=== PATIENT | female | born 1935 | race Caucasian/White ===

== ENCOUNTER 2022-10-23 18:14 | Inpatient (IN) | payer MEDICARE, BC ==
[~2022-10-23] VITALS: Ht 165.1 cm; Wt 65.8 kg
--- NOTE | 2022-10-23 18:20 | NUR ---
BIB [facility] from home with c/o syncopal episode in the shower. Pt to room 1A via EMS gurney. Per EMS pt had another syncopal episode upon their arrival. Pt BP on scene was 46/20 per EMS. Pt was given NS 500ML bolus and Epi x 3 doses IV (per their symptomatic hypotension protocol) in route to ER by EMS .Pt arrives on 12 20 via 100% NRB mask, pt's room air pulse ox was 83% per EMS. Blood adobo=326.
[2022-10-23] MEDS ORDERED: IV NORMAL SALINE 500 ML BAG IV ONE (18:30)
[2022-10-23 18:38] LABS: HEMATOCRIT 33.4 % (31.2-41.9); MEAN CORPUSCULAR HEMOGLOBIN 29.2 uug (24.7-32.8); MEAN CORPUSCULAR VOLUME 89.7 fL (75.5-95.3); PLATELET COUNT (AUTO) 180 K/uL (179-408)
[2022-10-23 18:46] LABS: CREATININE 1.2 mg/dL (0.6-1.3); POTASSIUM 3.3 mmol/L (3.5-5.1)
[2022-10-23 18:58] LABS: BILIRUBIN,TOTAL 0.2 mg/dL (0.2-1.0); TOTAL PROTEIN, SERUM 5.2 g/dL (6.4-8.2)
[2022-10-23] MEDS ORDERED: SWABABLE VALVE TRANSFER SET EA MC ONE ×2 (18:58→21:42)
[2022-10-23] MEDS ORDERED: IV NORMAL SALINE 250 ML IV ONE ×2 (18:58→21:42)
[2022-10-23] MEDS ORDERED: IOHEXOL 300MG/ML 100 ML INFUS..BTL ONE (18:58)
[2022-10-23] MEDS ORDERED: NOREPINEPHRINE BITARTRATE 8 MG in IV NORMAL SALINE 242 ML IV PRN (19:00)
[2022-10-23] MEDS ORDERED: PIPERACILLIN SODIUM/TAZOBACTAM 3.375 G in IV DEXTROSE 5% 50 ML IV ONE (19:15)
[2022-10-23] MEDS ORDERED: METRONIDAZOLE 500 MG/NS 100 ML PIGGYBACK IV ONE (19:15)
[2022-10-23] MEDS ORDERED: VANCOMYCIN 1G/D5W 200 ML PIGGYBACK IV ONE (19:15)
--- NOTE | 2022-10-23 19:16 | NUR ---
patient unstable BP. RN to call Radiology when patient is stable.
[2022-10-23] MEDS ORDERED: METRONIDAZOLE 500 MG/NS 100ML 100 ML IV ONE (19:23)
[2022-10-23] MEDS ORDERED: PIPERACILLIN/TAZOBACTAM/D5W 50 ML IV ONE (19:23)
[2022-10-23] MEDS ORDERED: VANCOMYCIN IV 0 ML ONE (19:23)
--- NOTE | 2022-10-23 19:55 | NUR ---
at bedside. Gave all due meds as ordered.
[2022-10-23] MEDS: POTASSIUM CHLORIDE 50 ML IV SCH ×2 (20:45→21:45)
--- NOTE | 2022-10-23 21:04 | NUR ---
Took patient's tempeture rectally and was 92.3. Doctor Angelica notified.
[2022-10-23] MEDS ORDERED: IOHEXOL 350 100 ML INFUS..BTL ONE (21:42)
[2022-10-23] MEDS ORDERED: POTASSIUM CHLORIDE 50 ML ONE (22:06)
[2022-10-23 22:51] LABS: *BILIRUBIN,URIN NEGATIVE (NEGATIVE); *BLOOD, URINE NEGATIVE (NEGATIVE); *CLARITY,URINE CLEAR (CLEAR); *COLOR,URINE YELLOW (YELLOW); *KETONES,URINE NEGATIVE (NEGATIVE); *UROBILINOGEN,URINE 0.2 E.U./dl (NORMAL); LEUKOCYTE ESTERASE ,URINE NEGATIVE (NEGATIVE); NITRITE, URINE NEGATIVE (NEGATIVE); PH,URINE 5.5 (5.0-8.0); UGLUCOSE NEGATIVE (NEGATIVE)
--- NOTE | 2022-10-23 23:25 | NUR ---
Pt. at bedside. CT scan done, hudband at bedside.
[2022-10-23] MEDS ORDERED: POTASSIUM CHLORIDE 20 MEQ TAB.PRT.SR ONE (23:33)
[2022-10-24] VITALS (7 sets, daily range): BP systolic 100–128; BP diastolic 43–75
[2022-10-24] MEDS ORDERED: MAGNESIUM HYDROXIDE 30 ML LIQUID UDC PO PRN (01:00)
[2022-10-24] MEDS ORDERED: TEMAZEPAM 15 MG CAPSULE PO PRN (01:00)
[2022-10-24] MEDS ORDERED: NOREPINEPHRINE BITARTRATE 8 MG in IV NORMAL SALINE 242 ML IV PRN (01:00)
[2022-10-24] MEDS ORDERED: ONDANSETRON 4 MG/2 ML VIAL IV PRN (01:00)
[2022-10-24] MEDS ORDERED: IV NS 1000 ML 1,000 ML IV PRN (01:00)
[2022-10-24] MEDS ORDERED: ACETAMINOPHEN 325 MG TABLET PO PRN (01:00)
[2022-10-24] MEDS ORDERED: REMEDY ESSENTIAL ZINC PASTE 113 GM TP PRN (01:00)
[2022-10-24] MEDS ORDERED: ENOXAPARIN SODIUM 40 MG/0.4 ML DISP.SYRIN SQ SCH (02:30)
--- NOTE | 2022-10-24 04:15 | NUR ---
Endorsed to RICARDO Melo, CCU status
--- NOTE | 2022-10-24 04:44 | NUR ---
Transferred pt to [facility] 3 Dominic number is [phone] said she will call him later.
[2022-10-24] MEDS ORDERED: CEFEPIME HCL 1 G in IV DEXTROSE 5% 50 ML IV SCH (06:00)
--- NOTE | 2022-10-24 06:00 | NUR ---
[id number] REPORT FROM RICARDO PORTILLO. PT IS AN ADMIT FROM ER. PT CAME FROM HOME-BIB AMBULANCE. PT HAS BEEN A/OX4 WITH STABLE VS. BP SLIGHT LOW OCCASS 80'S SYST WHILE PT WAS SLEEPING BUT RETURNED TO NORMAL. IV I/P VIA RIGH FA-20G. PT HAS NS IVF @75CC/HR. PT HAS BEEN SLEEPING QUIETLY BUT HAS BEEN AWAKE SINCE 0600. PT DENIES S/S OF PAIN. SKIN IS INTACT. PT IS ON RA WITH POX OF 93%. RESPS REG/UNLAB. PT HAS BEEN IN SR/NO ECTOPY. PT VIRK EQUALLY. PT ENDORSED TO RICARDO RASHID. GEN. COND. HAS BEEN STABLE/GUARDED. RUFUS SILVA
[2022-10-24] MEDS ORDERED: PANTOPRAZOLE SODIUM 40 MG TABLET.DR PO SCH (07:00)
--- NOTE | 2022-10-24 08:00 | NUR ---
Dr. vasquez rounding in unit. patient is able to discharge per his stand point.
[2022-10-24] MEDS: ENOXAPARIN SODIUM 40 MG/0.4 ML DISP.SYRIN SQ SCH ×2 (08:21→08:29)
--- NOTE | 2022-10-24 10:00 | NUR ---
patient got up with PT eval. patient was able to walk with no assistive devices. patient negative for orthostatics per PT evaluation.
--- NOTE | 2022-10-24 10:14 | NUR ---
Dr. Nicole in the unit rounding, at bedside to visit.
[2022-10-24] MEDS ORDERED: VANCOMYCIN IV 750 MG in IV DEXTROSE 5% 250 ML IV SCH (18:00)
== END 2022-10-24 11:04 | disposition home or self-care (01) | DRG 312 ==
LOC: ER 18:19 → CCU 10-24 00:42
PROVIDERS: ADMIT Internal Medicine; ATTEND Internal Medicine
DX: R55 Syncope and collapse (principal); J98.11 Atelectasis; E78.5 Hyperlipidemia, unspecified; E86.0 Dehydration; I25.10 Atherosclerotic heart disease of native coronary artery without angina pectoris; E88.09 Other disorders of plasma-protein metabolism, not elsewhere classified; Z86.16 Personal history of COVID-19; Z98.61 Coronary angioplasty status; W18.2XXA Fall in (into) shower or empty bathtub, initial encounter; Y93.E1 Activity, personal bathing and showering; Y92.009 Unspecified place in unspecified non-institutional (private) residence as the place of occurrence of the external cause; E03.9 Hypothyroidism, unspecified; Z20.822 Contact with and (suspected) exposure to COVID-19
CPT/HCPCS: 36415; 70450; 71045; 71275; 72125; 82533; 84443; 84484; 85025; 85610; 87400; 93005; A4663; G0378; J0692; J1650; J2543; J3370; J3480; J3490; J7040; J7050; Q9967